=== PATIENT | male | born 1950 | race African-American/Black ===

== ENCOUNTER 2016-11-16 11:39 | Emergency (ER) | payer MEDICAID ==
[~2016-11-16] VITALS: Ht 182.9 cm; Wt 108.4 kg
[~2016-11-16 11:39] MED LIST: [UNRECOGNIZED DRUG - REMARK]
[2016-11-16 11:50] VITALS: BP 125/61
[2016-11-16 12:34] LABS: BASOPHILS % (AUTO) 0.5 % (0.0-2.0); EOSINOPHILS % (AUTO) 2.3 % (0.0-3.0); LYMPHOCYTES % (AUTO) 27.8 % (20.0-45.0); MEAN CORPUSCULAR HEMOGLOBIN 28.7 PG (27.0-31.0); MEAN CORPUSCULAR HGB CONC 31.2 G/DL (32.0-36.0); MEAN CORPUSCULAR VOLUME 92 FL (80-99); MEAN PLATELET VOLUME 5.9 FL (6.5-10.1); MONOCYTES % (AUTO) 3.5 % (1.0-10.0); NEUTROPHILS % (AUTO) 65.8 % (45.0-75.0); PLATELET COUNT 240 K/UL (150-450); RED BLOOD COUNT 4.46 M/UL (4.70-6.10); RED CELL DISTRIBUTION WIDTH 15.4 % (11.6-14.8); WHITE BLOOD COUNT 5.6 K/UL (4.8-10.8)
[2016-11-16 12:38] LABS: ALANINE AMINOTRANSFERASE 7 U/L (3-41); ALBUMIN/GLOBULIN RATIO 0.9 (1.0-2.7); ANION GAP 16 (5-15); ASPARTATE AMINO TRANSFERASE 13 U/L (5-40); CALCIUM 9.2 mg/dL (8.6-10.2); CARBON DIOXIDE 24 mEQ/L (20-30); CHLORIDE 102 mEQ/L (98-107); CREATININE 1.3 mg/dL (0.7-1.2); GLOMERULAR FILTRATION RATE > 60 mL/min (>60); HEMOLYSIS 13; POTASSIUM 3.9 mEQ/L (3.4-4.9); SODIUM 142 mEQ/L (135-145); TOTAL PROTEIN 7.3 g/dL (6.6-8.7)
[2016-11-16 12:40] LABS: TROPONIN I < 0.30 ng/mL (<=0.30)
[2016-11-16 12:49] LABS: CKMB 2.1 ng/mL (< 6.7)
[2016-11-16 13:18] VITALS: BP 115/61
--- NOTE | 2016-11-16 13:51 | Emergency Room Report ---
History of Present Illness General Chief Complaint: Syncope Source: EMS Present Illness HPI 66-year-old male presents ED for evaluation. Per EMS patient had near-syncopal episode while [place] [employer] today. patient tilted at his head backwards while sitting and nearly passed out. No reported head trauma. Per EMS patient had orthostatic vitals. Patient given IV fluids. Patient states he feels better at this time. States that in June he had similar episode and was brought to hospital. Patient states he was here for a few days and discharged. Denies any chest pain or shortness of breath. Denies any dizziness or headache. No other aggravating relieving factors. Denies any other associated symptoms Allergies: Coded Allergies: No Known Allergies (Unverified , 07/06/16) Patient History Past Medical History: none Past Surgical History: none Pertinent Family History: none Social History: Denies: alcohol use, drug use, smoking Immunizations: UTD Reviewed Nursing Documentation: PMH: Agreed, PSxH: Agreed Nursing Documentation-PMH Hx Cancer: No Hx Gastrointestinal Problems: No Hx Neurological Problems: No Review of Systems All Other Systems: negative except mentioned in HPI Physical Exam Vital Signs Date Time Temp Pulse Resp B/P Pulse Ox O2 Delivery O2 Flow Rate FiO2 11/16/16 11:37 98.1 85 18 138/81 99 Room Air Sp02 EP Interpretation: reviewed, normal General Appearance: no apparent distress, alert, GCS 15, non-toxic Head: normocephalic, atraumatic Eyes: bilateral eye PERRL, bilateral eye normal inspection ENT: hearing grossly normal, normal pharynx, no angioedema, normal voice Neck: full range of motion, supple/symm/no masses Respiratory: chest non-tender, lungs clear, normal breath sounds, speaking full sentences Cardiovascular #1: regular rate, rhythm, no edema Cardiovascular #2: 2+ carotid (R), 2+ carotid (L), 2+ radial (R), 2+ radial (L) , 2+ dorsalis pedis (R), 2+ dorsalis pedis (L) Gastrointestinal: normal bowel sounds, non tender, soft, non-distended, no guarding, no rebound Rectal: deferred Genitourinary: normal inspection, no CVA tenderness Musculoskeletal: back normal, gait/station normal, normal range of motion, non- tender Neurologic: alert, oriented x3, responsive, motor strength/tone normal, sensory intact, speech normal Psychiatric: judgement/insight normal, memory normal, mood/affect normal, no suicidal/homicidal ideation Reflexes: 3+ bicep (R), 3+ bicep (L), 3+ tricep (R), 3+ tricep (L), 3+ knee (R) , 3+ knee (L) Skin: normal color, no rash, warm/dry, well hydrated Lymphatic: no adenopathy Medical Decision Making Diagnostic Impression: Primary Impression: Near syncope Additional Impression: Orthostatic hypotension ER Course Hospital Course 66-year-old male presents ED s/p near syncopal episode. hypotensive in field Differential diagnoses include: arrythmia, dehydration, intracranial bleed, seizure Clinical course Patient placed on stretcher. 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 After initial history and physical I ordered labs, EKG, chest Xray, IVFs labs reviewed- no leukocytosis, Hb/Hct stable, electrolytes ok, troponins negative Chest x-ray- no acute process EKG - NSR, no acute ischemic changes I reviewed EMR from last visit. Patient had essentially negative workup. Echo with good ejection fraction. Carotid ultrasound showed mild to moderate carotid stenosis. Repeat troponins were negative. Patient had AUGUSTUS that resolved Presentation today with similar. Patient had orthostatic hypotension and improved with IV fluids. Likely mild dehydration. I suspect cardiac cause. Patient prefers to be discharged. Agreed patient can be safely discharged with outpatient followup I. I feel this is a highly complex case requiring extensive working including EKG/Rhythm strip, Xray/CT/US, Blood/urine lab work, repeat exams while in ED, and administration of strong opiates/narcotics for pain control, admission to hospital or close patient follow up. Diagnosis - near syncope, orthostatic hypotension Stable and discharged to home. Followup with PMD. Return to ED if symptoms recur or worsen Labs Test 11/16/16 12:01 White Blood Count 5.6 K/UL (4.8-10.8) Red Blood Count 4.46 M/UL (4.70-6.10) Hemoglobin 12.8 G/DL (14.2-18.0) Hematocrit 41.0 % (42.0-52.0) Mean Corpuscular Volume 92 FL (80-99) Mean Corpuscular Hemoglobin 28.7 PG (27.0-31.0) Mean Corpuscular Hemoglobin Concent 31.2 G/DL (32.0-36.0) Red Cell Distribution Width 15.4 % (11.6-14.8) Platelet Count 240 K/UL (150-450) Mean Platelet Volume 5.9 FL (6.5-10.1) Neutrophils (%) (Auto) 65.8 % (45.0-75.0) Lymphocytes (%) (Auto) 27.8 % (20.0-45.0) Monocytes (%) (Auto) 3.5 % (1.0-10.0) Eosinophils (%) (Auto) 2.3 % (0.0-3.0) Basophils (%) (Auto) 0.5 % (0.0-2.0) Sodium Level 142 mEQ/L (135-145) Potassium Level 3.9 mEQ/L (3.4-4.9) Chloride Level 102 mEQ/L (98-107) Carbon Dioxide Level 24 mEQ/L (20-30) Anion Gap 16 (5-15) Blood Urea Nitrogen 17 mg/dL (7-23) Creatinine 1.3 mg/dL (0.7-1.2) Estimat Glomerular Filtration Rate > 60 mL/min (>60) Glucose Level 113 mg/dL (74-106) Calcium Level 9.2 mg/dL (8.6-10.2) Total Bilirubin 0.5 mg/dL (0.0-1.2) Aspartate Amino Transf (AST/SGOT) 13 U/L (5-40) Alanine Aminotransferase (ALT/SGPT) 7 U/L (3-41) Alkaline Phosphatase 72 U/L (40-129) Total Creatine Kinase 97 U/L (38-174) Creatine Kinase MB 2.1 ng/mL (< 6.7) Creatine Kinase MB Relative Index 2.1 Troponin I < 0.30 ng/mL (<=0.30) Pro-B-Type Natriuretic Peptide 750 pg/mL (0-125) Total Protein 7.3 g/dL (6.6-8.7) Albumin 3.6 g/dL (3.5-5.2) Globulin 3.7 g/dL Albumin/Globulin Ratio 0.9 (1.0-2.7) EKG Diagnostic Results Rate: normal Rhythm: NSR ST Segments: no acute changes ASA given to the pt in ED: No Rhythm Strip Diag. Results EP Interpretation: yes Rhythm: NSR, no PVC's, no ectopy Chest X-Ray Diagnostic Results EP Interpretation: Yes Findings: no consolidation, no effusion, no pneumothorax, no acute cardiopulmonary disease Number of Views: 1 Last Vital Signs Date Time Temp Pulse Resp B/P Pulse Ox O2 Delivery O2 Flow Rate FiO2 11/16/16 13:18 98.1 69 17 115/61 99 Room Air Status: improved Disposition: HOME, SELF-CARE Condition: Stable Referrals: NOT CHOSEN IPA/MD,REFERRING (PCP) Patient Instructions: Hypotension, [id number], Syncope YON NELSON M.D. Nov 16, 2016 13:51
--- NOTE | 2016-11-17 10:48 | Diagnostic Imaging Report ---
Indication: Shortness of breath Technique: One view of the chest Comparison: 07/06/2016 Findings: The heart is borderline enlarged. Lungs and pleural spaces are clear. Aorta is tortuous and ectatic Impression: Borderline cardiomegaly. No acute process
--- NOTE | 2016-11-18 08:46 | Cardiology Report ---
APPROVED REPORT EKG Measurement Heart [id number] Normal sinus rhythm Nonspecific T wave abnormality Abnormal ECG
== END 2016-11-16 13:15 | disposition home or self-care (01) ==
LOC: EDBD 11:39 → EMR 12:26
DX: R55 Syncope and collapse (principal); I95.1 Orthostatic hypotension
CPT/HCPCS: 36415; 71010; 80053; 82550; 82553; 83880; 84484; 85025; 93005; 96374

== ENCOUNTER 2017-01-11 11:01 | Emergency (ER) | payer MEDICAID ==
[~2017-01-11] VITALS: Ht 182.9 cm; Wt 108.9 kg
--- NOTE | 2017-01-11 11:39 | Emergency Room Report ---
History of Present Illness General Chief Complaint: Syncope Source: Patient, Medical Record Present Illness HPI 66YOM BIBEMS after alleged syncope in [place]. Patient was sitting in his walker /chair. No sudden movements before it happened. Was out for "seconds." No falls, trauma. Denies precipitating chest pain, SOB, palpitations, headache, abd pain. Per EMR and patient, was here in October and Jun for similar episode Per EMR, has had cardiac echo and carotid doppler which was negative Had normal blood workup in October here Was DCed home then Patient states he now has PMD - followed up after October visit. PMD didnt mention anything else re syncope Not on any HTN meds Takes "only medication for arthritis pain." Allergies: Coded Allergies: No Known Allergies (Unverified , 07/06/16) Patient History Past Medical History: other - Arthritis Past Surgical History: none Pertinent Family History: none Social History: Denies: alcohol use, drug use, smoking Immunizations: UTD Reviewed Nursing Documentation: PMH: Agreed, PSxH: Agreed Nursing Documentation-PMH Past Medical History: No History, Except For Hx Cancer: No Hx Gastrointestinal Problems: No Hx Neurological Problems: No Review of Systems All Other Systems: negative except mentioned in HPI Physical Exam Vital Signs Date Time Temp Pulse Resp B/P Pulse Ox O2 Delivery O2 Flow Rate FiO2 01/11/17 10:57 98.2 93 18 100/59 100 Room Air Sp02 EP Interpretation: reviewed, normal General Appearance: normal inspection, well appearing, no apparent distress, alert, GCS 15, non-toxic Head: normocephalic, atraumatic Eyes: bilateral eye EOMI, bilateral eye PERRL ENT: normal ENT inspection, hearing grossly normal, normal voice Neck: normal inspection, full range of motion, supple, no bony tend Respiratory: normal inspection, lungs clear, normal breath sounds, no respiratory distress, no retraction, no wheezing Cardiovascular #1: regular rate, rhythm, no edema Gastrointestinal: normal inspection, normal bowel sounds, non tender, soft, no guarding, no hernia Genitourinary: no CVA tenderness Musculoskeletal: normal inspection, back normal, normal range of motion, Dane' s Sign negative Neurologic: normal inspection, alert, oriented x3, responsive, blow down operator III-XII nml as tested, motor strength/tone normal, speech normal Psychiatric: normal inspection, judgement/insight normal, mood/affect normal Skin: normal inspection, normal color, no rash Lymphatic: normal inspection Medical Decision Making Diagnostic Impression: Primary Impression: Syncope Qualified Codes: R55 - Syncope and collapse ER Course Syncope, recurrent - Atraumatic - VSS. Orthostatics were normal although unable to stand up for long time given significant lower extremity pain, neuropathy - No additional syncope here - Given previous lab, imaging workup was negative and only mild carotid stenosis with normal EF, unlikely for further laboratory/imaging/admission at this time. CT Brain was also negative previously. - In shared decision making, patient prefers to go home and followup with PMD vs admission - Strongly recommended close followup tomorrow with PMD EKG Diagnostic Results Rate: normal Rhythm: NSR ST Segments: no acute changes ASA given to the pt in ED: No Last Vital Signs Date Time Temp Pulse Resp B/P Pulse Ox O2 Delivery O2 Flow Rate FiO2 01/11/17 10:57 98.2 93 18 100/59 100 Room Air Status: improved Disposition: HOME, SELF-CARE ROMELIA MARTÍNEZ M.D. Jan 11, 2017 11:39
[2017-01-11 11:47] VITALS: BP 100/59
[2017-01-11 12:48] VITALS: BP 118/57
[2017-01-11 13:31] VITALS: BP 118/57
--- NOTE | 2017-01-12 20:06 | Cardiology Report ---
APPROVED REPORT EKG Measurement Heart [id number] [place] [id number] Normal sinus rhythm Possible Left atrial enlargement Inferior infarct, age undetermined Anterior infarct, age undetermined Abnormal ECG
== END 2017-01-11 13:54 | disposition home or self-care (01) ==
LOC: EDBD 11:01 → EMR 11:45
DX: R55 Syncope and collapse (principal); M19.90 Unspecified osteoarthritis, unspecified site
CPT/HCPCS: 93005; 99283

== ENCOUNTER 2017-03-02 15:11 | Emergency (ER) | payer MEDICAID, OTHER ==
[~2017-03-02] VITALS: Ht 182.9 cm; Wt 104.3 kg
[~2017-03-02 15:11] MED LIST changes: +IBUPROFEN600 MG ORAL; +TRAMADOL HCL50 MG ORAL
[2017-03-02] MEDS ORDERED: Norco 5mg/325mg tab ORAL ONE (15:30)
--- NOTE | 2017-03-02 15:40 | Emergency Room Report ---
History of Present Illness General Chief Complaint: Pain Source: EMS Present Illness HPI The patient is a 66-year-old male brought in by ambulance for bilateral leg pain. He states that he has a history of arthritis but has run out of his pain medications. He denies any recent injury and states pain feels the same as previous instances of arthritic pain. He has been trying Tylenol which has not been helping. Pain is a 10 out of 10 dull ache of the hips, knees, and ankles. Worse with movement. He states it has been more difficult to walk due to the pain. He denies any other symptoms including nausea, vomiting, fever, chills, rash, shortness of breath, chest pain Allergies: Coded Allergies: No Known Allergies (Unverified , 07/06/16) Patient History Past Medical History: see triage record Pertinent Family History: none Reviewed Nursing Documentation: PMH: Agreed, PSxH: Agreed Nursing Documentation-PM Past Medical History: No History, Except For Hx Hypertension: No - RA Hx Cancer: No Hx Gastrointestinal Problems: No Hx Neurological Problems: No Review of Systems All Other Systems: negative except mentioned in HPI Physical Exam Vital Signs Date Time Temp Pulse Resp B/P Pulse Ox O2 Delivery O2 Flow Rate FiO2 03/02/17 14:57 98.8 72 20 111/74 100 Room Air Sp02 EP Interpretation: reviewed, normal General Appearance: no apparent distress, alert, GCS 15, non-toxic Head: normocephalic, atraumatic Eyes: bilateral eye PERRL, bilateral eye normal inspection Musculoskeletal: back normal, normal range of motion, tender - TTP over bilat hips and knees. No deformity Neurologic: alert, responsive, sensory intact Psychiatric: memory normal, mood/affect normal, no suicidal/homicidal ideation Skin: normal color, no rash, warm/dry, well hydrated Medical Decision Making PA Attestation Dr. Grimes is my supervising physician. Patient management was discussed with my supervising physician Diagnostic Impression: Primary Impression: Chronic pain Qualified Codes: G89.29 - Other chronic pain Additional Impression: Arthritis ER Course The patient is a 66-year-old male presenting with bilateral leg pain Differential diagnoses considered but not limited to: Arthritis, fracture, strain, contusion, chronic pain, among others Physical exam: Patient is in no apparent distress Is able to move extremities while on gurney. Sensation intact. No obvious deformity Dorsalis pedis pulse 2+ bilaterally No imaging is needed at this time due to no new injury. Is given pain medication and states that he is feeling better. He'll be discharged home and is given a prescription for pain medications. He needs to followup with his primary doctor. He is with his caregiver who agrees. ER precautions given Last Vital Signs Date Time Temp Pulse Resp B/P Pulse Ox O2 Delivery O2 Flow Rate FiO2 03/02/17 14:57 98.8 72 20 111/74 100 Room Air Status: improved Disposition: HOME, SELF-CARE Condition: Improved Scripts Tramadol Hcl* (ULTRAM*) 50 Mg Tablet 50 MG ORAL Q6H Y for For Pain, #10 TAB 0 Refills Prov: RAGHAV TORRES 03/02/17 RAGHAV TORRES Mar 02, 2017 15:40
[2017-03-02 15:44] VITALS: BP 111/74
[2017-03-02] MEDS ORDERED: TRAMADOL HCL50 MG ORAL (16:47)
[2017-03-02 17:32] VITALS: BP 115/72
[2017-03-02 19:15] VITALS: BP 118/72
[2017-03-02 20:50] VITALS: BP 122/70
== END 2017-03-02 21:13 | disposition home or self-care (01) ==
LOC: EDBD 15:11 → EMR 15:40
DX: G89.29 Other chronic pain (principal); M79.605 Pain in left leg; M79.604 Pain in right leg
CPT/HCPCS: 99283